=== PATIENT | male | born 1995 | race African-American/Black ===

== ENCOUNTER 2025-02-21 16:51 | Emergency (ER) | payer OTHER ==
[~2025-02-21] VITALS: Ht 180.3 cm; Wt 68.3 kg
[2025-02-21 17:03] VITALS: TEMP 98.3
--- NOTE | 2025-02-21 17:18 | ELECTROCARDIOGRAPH REPORT ---
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 JEIMY Spears Measurements Intervals [place] Rate: 74 P: 70 [place]: 172 QRS: 73 QRSD: 92 T: 54 QT: 365 QTc: 405 Interpretive Statements Sinus rhythm RSR' in V1 or V2, right VCD or RVH ST elevation suggests acute pericarditis Baseline wander in lead(s) V3 Electronically Signed On 02-23-2025 18:02:[address] JEIMY Spears Please click the below link to view image of tracing.
--- NOTE | 2025-02-21 17:37 | RADIOLOGY REPORT ---
CHEST RADIOGRAPH Indication: CP Technique: Single frontal view of the chest was obtained Comparison: None FINDINGS: Lines and Tubes: None Lungs: No focal consolidation. Pleura: No effusion. No pneumothorax. Cardiomediastinal contours: Unremarkable Bones: No acute osseous abnormality. IMPRESSION: No acute cardiopulmonary disease.
[2025-02-21 17:43] LABS: LEUKOCYTE ESTERASE ,URINE NEGATIVE (Neg); NITRITES, URINE NEGATIVE (Neg); OCCULT BLOOD,URINE NEGATIVE (Neg)
[2025-02-21 17:58] LABS: UA COLLECTION TYPE CLN CATCH MIDSTREAM
[2025-02-21 18:00] LABS: URINE AMPHETAMINE SCREEN NEGATIVE (Neg); URINE BARBITUATE SCREEN NEGATIVE (Neg); URINE BENZODIAZEPINES SCREEN NEGATIVE (Neg); URINE CANNABINOID SCREEN NEGATIVE (Neg); URINE COCAINE SCREEN NEGATIVE (Neg); URINE METHADONE SCREEN NEGATIVE (Neg); URINE OPIATE SCREEN NEGATIVE (Neg); URINE PHENCYCLIDINE SCREEN NEGATIVE (Neg)
--- NOTE | 2025-02-21 18:27 | Physician Documentation ---
History of Present Illness ~ Chief Complaint: Chest Pain Stated Complaint: CP Time Seen by MD: 18:20 HPI Patient presents to the emergency room with right-sided chest pain that he noticed while he was buying some Cheetos. Reports no prior instances. vangue in explanation. Denies history of blood pressure cholesterol diabetes and denies smoking Medication Reconciliation Allergies: Coded Allergies: No Known Allergies (Unverified , 02/21/25) Review of Systems ROS Or review of systems negative except as per HPI Physical Exam Vital Signs: Temperature: 98.3, Source: Temporal, Heart Rate: 70, Respiratory Rate: 16, BP: 106/68, Pulse Oximetry: 100, Weight: 68.300 Oxygen Flow Rate: 0 Physical Exam General: Patient is awake, alert, oriented x4 in no acute distress and well appearing.~ Head: Normocephalic and atraumatic. Eyes: Conjunctival normal. EOMI. PERRL. ENT: Mucous membranes moist. Neck: Supple, trachea is midline. Chest: Clear to auscultation bilaterally without rales, rhonchi, or wheezes. There is no accessory muscle use or retractions. Cardiac: RRR without murmurs, gallops, or rubs. Abd: Soft, nondistended, nontender, with normoactive bowel sounds. No guarding, rebound, or rigidity. Extremities: Normal strength. Normal range of motion. No deformities or edema. No calf tenderness to palpation Progress Results/Orders Results/Orders Vital Signs 02/21/25 02/21/25 17:03 17:41 Temp 98.3 Pulse 70 Resp 16 B/P (MAP) 106/68 Pulse Ox 100 O2 Flow Rate 0 Laboratory Tests Test 02/21/25 17:14 Urine Specimen Description Cln catch midstream Urine Color Straw Urine Clarity Clear Urine pH 7.0 Urine Specific [place] 1.010 Urine Protein Negative Urine Glucose (UA) Negative Urine Ketones Negative Urine Occult Blood Negative Urine Nitrite Negative Urine Bilirubin Negative Urine Urobilinogen 0.2 Urine Leukocyte Esterase Negative Urine Culture Indicated Not ind Volume Urine Centrifuged 10 ml Urine Comment Urine Opiates Screen Negative Urine Methadone Screen Negative Urine Fentanyl Screen Negative Urine Barbiturates Screen Negative Urine Phencyclidine Screen Negative Urine Amphetamines Screen Negative Urine Benzodiazepines Screen Negative Urine Cocaine Screen Negative Urine Cannabinoids Screen Negative Drug Screen Comment EKG/XRAY/CT/US/VASC/MRI EKG : Additional Comment EKG interpreted by myself shows time of 17 17, rate 74, sinus rhythm, normal axis, nonspecific ST changes. Chest X-Ray : Additional Comments Exam: CHEST,SINGLE VIEW CHEST RADIOGRAPH Indication: CP Technique: Single frontal view of the chest was obtained Comparison: None FINDINGS: Lines and Tubes: None Lungs: No focal consolidation. Pleura: No effusion. No pneumothorax. Cardiomediastinal contours: Unremarkable Bones: No acute osseous abnormality. IMPRESSION: No acute cardiopulmonary disease. Medical Decision Making Additional information obtaine: N/A Findings Patient presents to the emergency room for evaluation chest pain as per HPI. Differentials included but were not limited to ACS musculoskeletal pain pulmonary embolism pneumothorax before EKG and chest x-ray ordered which were reassuring. Patient is sleeping in his room comfortably. Vital signs stable with no tachycardia or hypoxia renal feel he requires investigation into possible pulmonary embolisms Heart Score: 0 Differential Dx:Considerations: Include: angina, aortic dissection, chest wall pain, cholelithiasis, CHF, costochondritis, esophageal reflux/spasm, gastritis, herpes zoster, myocardial infarction, pericarditis, pleuritis, pancreatitis, pneumonia, pneumothorax, pulmonary embolus, other Departure Disposition: 01 HOME / SELF CARE / HOMELESS Impression: Primary Impression: Chest pain Condition: Stable Discharge Instructions: Nonspecific Chest Pain, Adult Referrals: NO PRIMARY CARE PROVIDER (PCP) Signature Scribe Signature: No scribe Attestation: The note accurately reflects work and decisions made by me.Manuel Olivares MD 02/21/25 18:31 MANUEL OLIVARES MD Feb 21, 2025 18:27
[2025-02-21 18:54] VITALS: BP 122/68; PULSE 84; RESP 16; O2SAT 99
== END 2025-02-21 18:55 | disposition home or self-care (01) ==
LOC: ER 16:52
DX: R07.9 Chest pain, unspecified (principal)
CPT/HCPCS: 71045; 80305; 81003; 93005; 99285

== ENCOUNTER 2025-02-23 14:38 | Emergency (ER) | payer OTHER ==
[~2025-02-23] VITALS: Ht 177.8 cm; Wt 67.4 kg
[2025-02-23 15:05] VITALS: BP 129/71; PULSE 86; RESP 16; TEMP 98.5; O2SAT 98
--- NOTE | 2025-02-23 15:36 | Physician Documentation ---
History of Present Illness Chief Complaint: See Chief Complaint Stated Complaint: STOMACH PAIN Time Seen by MD: 14:41 HPI Patient is a pleasant 29-year-old male that presents to the emergency department without any medical complaint at this time. Patient reports complaints about someone following him from [place] and waking him off this morning after he was running around and then walking. Patient's conversation is largely and coherent. Unable to elicit any useful information from the patient regarding medical history or complaints at this time. Patient denies any symptoms when his abdomen is examined. Patient reports no fever chills nausea vomiting diarr hea patient's vital signs are stable at this time. Patient has been provided with thorough education regarding the necessity to return to the emergency department he develops any symptoms that we discussed here today or he has any additional needs. Medication Reconciliation Allergies: Coded Allergies: No Known Allergies (Unverified , 02/23/25) Review of Systems ROS As stated above in the HPI, otherwise all systems are reviewed and negative. Physical Exam Vital Signs: Temperature: 98.5, Source: Temporal, Heart Rate: 86, Respiratory Rate: 16, BP: 129/71, Pulse Oximetry: 98, Weight: 67.400 Oxygen Flow Rate: 0 Physical Exam VITALS: Reviewed and as above. GENERAL: Alert, no apparent distress. HEENT: Normocephalic, atraumatic, PERRL, EOMI, dry mucosa, no erythema RESPIRATORY: Lungs clear, normal breath sounds, no respiratory distress. CHEST: No accessory muscle use, no retractions CV: Regular rate, rhythm, no edema, no murmur, No: JVD GI: Soft, non-tender, bowels sounds present, no rebound, guarding, or rigidity BACK: No CVA tenderness, or swelling MUSCULOSKELETAL No deformities, no edema SKIN: Warm and dry, no rash NEURO: Oriented x4, No motor or sensory deficit PSYCH: Rambling in coherent conversation, no agitation present. Alert and oriented to person place and time. Progress Results/Orders Results/Orders Vital Signs 02/23/25 15:05 Temp 98.5 Pulse 86 Resp 16 B/P (MAP) 129/71 Pulse Ox 98 O2 Flow Rate 0 Medical Decision Making Additional information obtaine: other Findings Patient is a pleasant 29-year-old male that presents to the emergency department without any medical complaint at this time. Patient reports complaints about someone following him from [place] and waking him off this morning after he was running around and then walking. Patient's conversation is largely and coherent. Unable to elicit any useful information from the patient regarding medical history or complaints at this time. Patient denies any symptoms when his abdomen is examined. Patient reports no fever chills nausea vomiting diarrhea patient's vital signs are stable at this time. Patient has been provided with thorough education regarding the necessity to return to the emergency department he develops any symptoms that we discussed here today or he has any additional needs. Differential Dx:Considerations: Other, N/A Departure Disposition: HOME / SELF CARE / HOMELESS Impression: Primary Impression: General medical exam Condition: Stable Additional Instructions: Patient is a pleasant 29-year-old male that presents to the emergency department without any medical complaint at this time. Patient reports complaints about someone following him from [place] and waking him off this morning after he was running around and then walking. Patient's conversation is largely and coherent. Unable to elicit any useful information from the patient regarding medical history or complaints at this time. Patient denies any symptoms when his abdomen is examined. Patient reports no fever chills nausea vomiting diarrhea patient's vital signs are stable at this time. Patient has been provided with thorough education regarding the necessity to return to the emergency department he develops any symptoms that we discussed here today or he has any additional needs. Referrals: NO PRIMARY CARE PROVIDER (PCP) Education Educated: Patient Educated regarding: diagnosis, treatment, need for follow up Signature Scribe Signature: A Attestation: Scribed for Anant Hilton by CHAZ Najera . 02/23/25 15:35 ANANT HILTON Feb 23, 2025 15:36
[2025-02-27] MEDS ORDERED: ALBU18HF2 INH (11:32)
== END 2025-02-23 15:50 | disposition home or self-care (01) ==
LOC: ER 14:40
DX: Z00.00 Encounter for general adult medical examination without abnormal findings (principal)
CPT/HCPCS: 99282

== ENCOUNTER 2025-03-04 06:51 | Emergency (ER) | payer OTHER ==
[~2025-03-04] VITALS: Ht 180.3 cm; Wt 66.8 kg
[~2025-03-04 06:51] MED LIST: ALBU18HF2 INH
--- NOTE | 2025-03-04 06:57 | ELECTROCARDIOGRAPH REPORT ---
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 Sanford Guerrero Measurements Intervals [place] Rate: 69 P: 79 [place]: 160 QRS: 88 QRSD: 92 T: 60 QT: 362 QTc: 388 Interpretive Statements Sinus rhythm Consider right atrial enlargement Consider right ventricular hypertrophy ST elevation suggests acute pericarditis Electronically Signed On 03-05-2025 7:06:[address] Sanford Guerrero Please click the below link to view image of tracing.
[2025-03-04 06:58] VITALS: TEMP 97
[2025-03-04 07:09] VITALS: BP 94/62; PULSE 72; RESP 18; O2SAT 97
--- NOTE | 2025-03-04 07:23 | RADIOLOGY REPORT ---
DI CHEST,SINGLE VIEW, HISTORY: CP COMPARISON: DI CHEST,SINGLE VIEW on DOS: 02/27/25, DI CHEST,SINGLE VIEW on DOS: 02/21/25 DI CHEST,SINGLE VIEW on DOS: 02/27/25, DI CHEST,SINGLE VIEW on DOS: 02/21/25 TECHNICAL DATA: 1 view of the chest was obtained. FINDINGS: Lines and tubes: None Cardiomediastinal silhouette: normal Pulmonary vasculature: normal Lung expansion: normal Lung airspace: normal Lung interstitium: normal Pleura: normal Pneumothorax: no Bones: Unremarkable Other: no IMPRESSION: No acute intrathoracic abnormality.
--- NOTE | 2025-03-04 07:39 | Physician Documentation ---
History of Present Illness ~ Chief Complaint: Chest Pain Stated Complaint: CHEST PAIN Time Seen by MD: 07:19 Primary Medical Doctor: NONE Mode of Arrival: POV HPI 29-year-old male, overall healthy, presenting with right anterior chest wall pain He tells me he felt normal yesterday had a normal day. Last night you state at the [facility]. He woke up at about 5:00 a.m. with a sharp pain in the right anterior chest wall. He states it is worse with palpation. It is not pleuritic. He is not short of breath. No recent infectious symptoms or productive cough. No history of heart or lung problems. He did not take any medications or other treatments for this. No other acute concerns Tetanus within 5 Years?: No Allergies: Coded Allergies: No Known Allergies (Unverified , 03/04/25) Active Prescriptions See Medication Reconciliation Form. Medication Reconciliation Scheduled PRN Albuterol Sulfate (Ventolin Hfa), 2 PUFFS INH Q4HPRN PRN for SOB or wheezing Past Medical History Past Medical History: Asthma Review of Systems Constitutional: Denies: fever Respiratory: Denies: shortness of breath Cardiovascular: Reports: chest pain Physical Exam Vital Signs: Temperature: 97.0, Source: Temporal, Heart Rate: 72, Respiratory Rate: 18, BP: 94/62, Pulse Oximetry: 97, Weight: 66.800 Oxygen Flow Rate: 0 Physical Exam General: This is a thin young man, not in distress, appears sleepy Heart: Regular rate and rhythm, normal-appearing peripheral perfusion Lungs: Clear breath sounds bilateral, normal work of breathing, normal oxygen saturation on room air Chest wall: The patient has no overlying rash. He does have reproducible tenderness on palpation of the right anterior chest wall Abdomen: Soft, nondistended, nontender including in the right upper quadrant Extremities: Warm and well-perfused, no edema Neuro: Alert and oriented Psychiatric: Sleepy but cooperative with exam Progress Results/Orders Results/Orders Orders - MARISA RAGSDALE MD Chest,Single View (03/04/25 06:54) Monitor (03/04/25 06:54) Saline Lock (03/04/25 06:54) Oxygen (03/04/25 06:54) Completed Orders - MARISA RAGSDALE MD Chest,Single View (03/04/25 06:54) Electrocardiogram (03/04/25 06:54) Ibuprofen Tablet (Motrin Tablet) (03/04/25 07:40) Ibuprofen Tablet (Motrin Tablet) (03/04/25 07:45) Vital Signs 03/04/25 03/04/25 03/04/25 03/04/25 06:58 07:09 07:09 07:09 Temp 97.0 Pulse 75 72 Resp 20 18 18 B/P (MAP) 106/62 94/62 (73) Pulse Ox 97 97 O2 Delivery Room Air* O2 Flow Rate 0 0 FiO2 N/A EKG/XRAY/CT/US/VASC/MRI EKG : Additional Comment I personally interpreted the EKG and this shows: Sinus rhythm, rate 69, early repolarization. QTC 388 Chest X-Ray : Additional Comments I personally interpreted the x-ray, and it shows: No pneumothorax, no focal consolidation, no rib fracture Medical Decision Making Additional information obtaine: N/A Findings na Differential Dx:Considerations: Include: Chest wall contusion, Pneumothorax, Rib fracture Additional Comment The patient presents with chest wall pain. He has no other concerning symptoms to suggest a more dangerous process. I doubt dangerous heart or lung process. No abdominal tenderness or pain to suggest a dangerous abdominal process. Chest x-ray unremarkable including no pneumothorax. Overall this appears consistent with chest wall pain. He will be given ibuprofen and discharged with symptomatic treatment. Departure Time of Disposition: 07:39 Disposition: 01 HOME / SELF CARE / HOMELESS Impression: Primary Impression: Chest wall pain Condition: Stable Discharge Instructions: Chest Wall Pain Referrals: NO PRIMARY CARE PROVIDER (PCP) Education Educated: Patient Educated regarding: diagnosis, treatment, need for follow up Signature Scribe Signature: na Attestation: MARISA Herron MD Mar 04, 2025 07:39
[2025-03-04] MEDS ORDERED: ibuprofen tablet 400 MG TABLET PO ONE (07:40)
[2025-03-05] MEDS ORDERED: HYDR-3686 PO (15:13)
[2025-03-05] MEDS ORDERED: ALBU18HF2 INH (15:13)
== END 2025-03-04 07:49 | disposition home or self-care (01) ==
LOC: ER 06:53
DX: R07.89 Other chest pain (principal); J45.909 Unspecified asthma, uncomplicated
CPT/HCPCS: 71045; 93005; 99283

== ENCOUNTER 2025-03-05 10:09 | Emergency (ER) | payer MEDICAID, OTHER ==
[~2025-03-05] VITALS: Ht 177.8 cm; Wt 67.8 kg
[2025-03-05 10:19] VITALS: BP 114/72; PULSE 78; RESP 18; TEMP 97.4; O2SAT 96
--- NOTE | 2025-03-05 11:26 | Physician Documentation ---
History of Present Illness ~ Chief Complaint: Headache Stated Complaint: ABDOMINAL PAIN Time Seen by MD: 10:26 Primary Medical Doctor: NONE HPI 29-year-old male who presents to the emergency department with a vague complaint of headache. No associated neurological symptoms. Patient has a steady gait. He has a very blunted affect. Medication Reconciliation Allergies: Coded Allergies: No Known Allergies (Unverified , 03/05/25) Scheduled PRN Albuterol Sulfate (Ventolin Hfa), 2 PUFFS INH Q4HPRN PRN for SOB or wheezing Past Medical History Past Medical History: Asthma Review of Systems All Other Systems at this time: Reviewed and Negative Neurological: Reports: headache Physical Exam Vital Signs: RN Vital Signs have been reviewed: Yes, Temperature: 97.4, Source: Temporal, Heart Rate: 78, Respiratory Rate: 18, BP: 114/72, Pulse Oximetry: 96, Weight: 67.800 Oxygen Flow Rate: 0 General Appearance: alert, WD/WN, mild distress ENT: normal ENT inspection Nose: normal inspection Oropharynx: normal inspection Head: normal inspection Neck: non-tender Cardiovascular: regular rate, rhythm Extremities: normal inspection Skin: warm/dry Neurologic: oriented x4, 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 Motor / Sensory: no motor deficit, no sensory deficit Psychiatric: normal mood/affect Progress Results/Orders Results/Orders Completed Orders - MARISA BARR Ibuprofen Tablet (Motrin Tablet) (03/05/25 11:15) Medications Received in ER Medications (Trade) Dose Ordered Sig/Bubba Route PRN Reason Start Time Stop Time Status Last Admin Dose Admin (Motrin tablet) 400 mg ONCE ONCE PO 03/05/25 11:15 03/05/25 11:16 DC 03/05/25 11:35 400 MG Vital Signs 03/05/25 10:19 Temp 97.4 Pulse 78 Resp 18 B/P (MAP) 114/72 Pulse Ox 96 O2 Flow Rate 0 Medical Decision Making Additional information obtaine: N/A Findings Examination and history consistent with a non intractable headache with little to no suspicion of subarachnoid hemorrhage, epidural or subdural. Patient provided ibuprofen discharged safely with a steady gait. Patient is discharged in the emergency department grossly neurologically intact without focal neuro d eficits. Differential Dx:Considerations: Include: LORD-Cluster, LORD-Migraine, LORD- Hypertensive, LORD-Muscular contraction, LORD-Post lumbar puncture, Carbon monoxide toxicity, Close head injuyr, CVA, Fever induced, Hemorrhage-Epidural, Hemorr alessandro-Intracerebral, Hemorrhage-Subarachnoid, Hemorrhage-Subdural, Mass lesion, Meningitis, Post-traumtic, Pseudotumor cerebri, Sinusitis, Temporal arteritis, Trigeminal neuralgia, Other Departure Disposition: HOME / SELF CARE / HOMELESS Impression: Primary Impression: Headache Qualified Codes: R51.9 - Headache, unspecified Condition: Improved Discharge Instructions: Headache Referrals: NO PRIMARY CARE PROVIDER (PCP) Education Educated: Patient Educated regarding: diagnosis, treatment, prognosis, need for follow up Signature Scribe Signature: . Attestation: . MARISA BARR PAC Mar 05, 2025 11:26
[2025-03-05] MEDS: ibuprofen tablet 400 MG TABLET PO ONE (11:35)
[2025-03-05] MEDS ORDERED: HYDR-3686 PO (15:13)
[2025-03-05] MEDS ORDERED: ALBU18HF2 INH (15:13)
== END 2025-03-05 12:00 | disposition home or self-care (01) ==
LOC: ER 10:09
DX: R51.9 Headache, unspecified (principal); J45.909 Unspecified asthma, uncomplicated
CPT/HCPCS: 99283